=== PATIENT | female | born 1960 | race Caucasian/White ===

== ENCOUNTER → 2024-01-02 | Outpatient (CLI) | payer OTHER ==
[2024-01-02 07:04] LABS: African American GFR (CKD) 86 (>60 ml/min/1.73 sqM); Blood Urea Nitrogen 14 mg/dL (7-17); Non-African American GFR(CKD) 75 (>60 ml/min/1.73 sqM)
--- NOTE | 2024-01-02 08:59 | US ---
EXAMINATION TYPE: US liver DATE OF EXAM: 01/02/2024 COMPARISON: NONE CLINICAL INDICATION: Female, 63 years old with history of ELEVATED GABRIELA; Elevated bilirubin TECHNIQUE: Grayscale and color Doppler imaging of the right upper quadrant was performed. 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 Tail obscured by overlying bowel gas Liver: attenuating, heterogeneous. Area of focal sparing adjacent to GB Gallbladder: no evidence of stones Evidence for sonographic Xiong's sign: no CBD: appears wnl Right Kidney: no evidence of hydronephrosis The visualized portions of the pancreas unremarkable. Liver is diffusely echogenic and heterogenous i n appearance without focal suspicious lesion. Region of focal sparing adjacent to the gallbladder. Li mendy is mildly enlarged. No gallstones, wall thickening or surrounding fluid. Negative sonographic Mur phy's sign. Common bile duct appears within normal limits. Right kidney demonstrates no hydronephrosi s, shadowing calculi, or solid mass. IMPRESSION: 1. Mild hepatomegaly with diffuse fatty infiltration. No focal lesion identified. 2. No biliary duct dilatation identified. [facility], , 01/02/2024 8:56 AM
--- NOTE | 2024-01-02 09:42 | CT ---
EXAMINATION TYPE: CT angio chest CT DLP: 280.7 mGycm, Automated exposure control for dose reduction was used. DATE OF EXAM: 01/02/2024 7:55 AM COMPARISON: None CLINICAL INDICATION:Female, 63 years old with history of R07.1 CHEST PAIN ON BREATHING R79.89 OTHER S PECIFI; ELEVATED D-DIMER TECHNIQUE/CONTRAST: CTA scan of the thorax is performed with IV Contrast, patient injected with 60 mL of Isovue 370, pulm onary embolism protocol. MIP images are created and reviewed. FINDINGS: Pulmonary Artery: There is no evidence for a filling defect within the pulmonary vasculature to sugge st acute pulmonary embolism. The pulmonary artery is of normal size. Lungs/Pleura: No evidence of pleural effusion or pneumothorax. Bibasilar patchy groundglass opacities . Small peripheral scattered groundglass opacities within the bilateral upper lobes. Airway: Large airways are patent. Heart: Mildly enlarged. No pericardial effusion. Vasculature: No evidence of aortic aneurysm. Mediastinum: Enlarged subcarinal lymph node measuring 1.2 cm short axis. Enlarged right hilar lymph n ode measuring 1.1 cm short axis. Enlarged left hilar lymph node measuring 1.1 cm short axis. Musculoskeletal: No acute osseous abnormalities. Remote fracture to the left lateral fifth and sixth ribs. Soft Tissues: Unremarkable. Lower neck: Macrocalcification within the right thyroid lobe. Upper Abdomen: Small hiatal hernia. IMPRESSION: 1. No evidence of pulmonary embolism. 2. Predominantly bibasilar patchy groundglass opacities concerning for atypical pneumonia. 3. Reactive mediastinal and hilar lymphadenopathy likely secondary to #2. [facility], , 01/02/2024 9:40 AM
== END | disposition home or self-care (01) ==
LOC: RADUSWWP 06:19
PROVIDERS: ATTEND Family Medicine
CPT/HCPCS: 36415; 71275; 76705; 82565; 84520